=== PATIENT | female | born 1985 | race American Indian/Alaskan Native ===

== ENCOUNTER 2017-10-30 21:49 | Emergency (ER) | payer MEDICAID ==
[2017-10-30 23:04] VITALS: BP 141/94
[2017-10-31] MEDS ORDERED: DELTASONE PO ONE (01:59)
[2017-10-31] MEDS ORDERED: TORADOL ONE (02:00)
[2017-10-31] MEDS ORDERED: TORADOL IM ONE (02:00)
--- NOTE | 2017-10-31 02:03 | Emergency Department Report ---
ED Back Pain/Injury HPI - General Chief Complaint: Back Pain/Injury Stated Complaint: TOE INJURY Time Seen by Provider: 10/31/17 01:37 Source: patient Limitations: No Limitations - History of Present Illness Initial Comments: 32-year-old -[place] female comes in complaining of right sided lower back pain radiates down her right leg that began 2 months ago after working out. However she reports has become more constant. Patient reports she tried hydrocodone which on the last 30 minutes as well as tried heat which she reports did not help either. Patient denies any urine or fecal incontinence. She denies any trauma. No past medical history currently takes no medications on a daily basis and has no known drug allergies. MD Complaint: back pain Similar Symptoms Previously: Yes Radiation: right leg Severity scale (0 -10): 8 Quality: burning, sharp Consistency: intermittent (getting worse) Improves With: none Worsens With: movement, supine, sitting upright, walking Associated Symptoms: numbness. denies: incontinence Treatments Prior to Arrival: prescription analgesics - Related Data Previous Rx's Medication Instructions Recorded Last Taken Type HYDROcodone/APAP 5-325 [[place] 1 each PO Q6HR PRN #15 tablet 02/14/16 Unknown Rx 5/325] Ibuprofen [Motrin 800 MG tab] 800 mg PO Q8HR PRN #30 tablet 02/14/16 Unknown Rx Acetaminophen/Codeine [Tylenol #3] 1 tab PO Q4HR PRN #14 tablet 02/19/16 Unknown Rx Diclofenac Sodium 75 mg PO BID #14 tablet.dr 02/19/16 Unknown Rx Ibuprofen [Motrin 800 MG tab] 800 mg PO Q8HR PRN #30 tablet 10/31/17 Unknown Rx Prednisone [predniSONE 10 mg 10 mg PO .TAPER #1 tab.ds.pk 10/31/17 Unknown Rx (6-Day Pack, 21 Tabs)] Allergies Allergy/AdvReac Type Severity Reaction Status Date / Time No Known Allergies Allergy Verified 02/14/16 19:42 ED Review of Systems ROS: Stated complaint: TOE INJURY Other details as noted in HPI Comment: All other systems reviewed and negative Musculoskeletal: back pain ED Past Medical Hx - Past Medical History Additional medical history: FX left hand - Surgical History Past Surgical History?: No - Social History Smoking Status: Never Smoker Substance Use Type: None - Medications Home Medications: Home Medications Medication Instructions Recorded Confirmed Last Taken Type HYDROcodone/APAP 5-325 [[place] 1 each PO Q6HR PRN #15 tablet 02/14/16 Unknown Rx 5/325] Ibuprofen [Motrin 800 MG tab] 800 mg PO Q8HR PRN #30 tablet 02/14/16 Unknown Rx Acetaminophen/Codeine [Tylenol #3] 1 tab PO Q4HR PRN #14 tablet 02/19/16 Unknown Rx Diclofenac Sodium 75 mg PO BID #14 tablet.dr 02/19/16 Unknown Rx Ibuprofen [Motrin 800 MG tab] 800 mg PO Q8HR PRN #30 tablet 10/31/17 Unknown Rx Prednisone [predniSONE 10 mg 10 mg PO .TAPER #1 tab.ds.pk 10/31/17 Unknown Rx (6-Day Pack, 21 Tabs)] ED Physical Exam - General Limitations: No Limitations General appearance: alert, in no apparent distress - Head Head exam: Present: atraumatic, normocephalic - ENT ENT exam: Present: mucous membranes moist - Respiratory Respiratory exam: Present: normal lung sounds bilaterally. Absent: respiratory distress - Cardiovascular Cardiovascular Exam: Present: regular rate, normal rhythm. Absent: systolic murmur, diastolic murmur, rubs, gallop - Back Exam Back exam: Present: full ROM, other - Expanded Back Exam Expanded Back exam: Sciatic Notch Tenderness: Right, Positive Straight Leg Raise: Right ( positive cross leg exam) - Neurological Exam Neurological exam: Present: alert, oriented X3 - Psychiatric Psychiatric exam: Present: normal affect, normal mood - Skin Skin exam: Present: warm, dry, intact, normal color. Absent: rash ED Course Vital Signs 10/30/17 23:02 Temperature 98.6 F Pulse Rate 87 Respiratory 18 Rate Blood Pressure 141/94 O2 Sat by Pulse 100 Oximetry ED Medical Decision Making - Medical Decision Making Patient's been evaluated by this provider fast track. Exam positive for sciatica. Status the patient I will give her Toradol injection and prednisone. Discussed the patient I will discharge her on ibuprofen and a prednisone pack. Refer patient to her primary care provider. Exercises to help with her sciatica pain. Critical care attestation.: If time is entered above; I have spent that time in minutes in the direct care of this critically ill patient, excluding procedure time. ED Disposition Clinical Impression: Sciatica, right side, Low back pain radiating to lower extremity Disposition: DC-01 TO HOME OR SELFCARE Is pt being admited?: No Does the pt Need Aspirin: No Condition: Stable Additional Instructions: Please take pain medication as prescribed. I highly recommend doing the exercises as at is the best for this issue. If symptoms persist or gets worse please follow up with her primary care provider. Prescriptions: Ibuprofen [Motrin 800 MG tab] 800 mg PO Q8HR PRN #30 tablet PRN Reason: Pain Prednisone [predniSONE 10 mg (6-Day Pack, 21 Tabs)] 10 mg PO .TAPER #1 tab.ds.pk Referrals: PRIMARY CARE, [Primary Care Provider] - 3-5 Days Forms: Work/School Release Form(ED), Accompanied Note
== END 2017-10-31 02:15 | disposition home or self-care (01) ==
LOC: ED 21:49
DX: M54.41 Lumbago with sciatica, right side (principal)
CPT/HCPCS: 96372; 99282; J1885; J7512

== ENCOUNTER 2017-11-07 13:53 | Emergency (ER) | payer MEDICAID ==
[2017-11-07] MEDS ORDERED: TORADOL IM ONE ×2 (23:55→23:57)
[2017-11-07] MEDS ORDERED: ULTRAM PO ONE (23:56)
--- NOTE | 2017-11-07 23:59 | Emergency Department Report ---
ED Back Pain/Injury HPI - General Chief Complaint: Back Pain/Injury Stated Complaint: RIGHT LEG PAIN Time Seen by Provider: 11/07/17 23:55 Source: patient Limitations: No Limitations - History of Present Illness Initial Comments: 32-year-old -Citizen Of [place] female comes back for complaining with back pain with sciatica. Patient was recently seen on 10/31/2017 and was prescribed ibuprofen and steroids report that she has completed her medication dose. Patient reports that she did not follow-up with or go because she is in the process of moving to [place]. Patient ports of the pain is back and should it is unbearable and she does not feel that she is able to move boxes and packed with this pain. Patient denies any urinary or fecal incontinent. SHe denies any dizziness nausea vomiting chest pain shortness of breathing. MD Complaint: back pain -: month(s) (1) - Related Data Previous Rx's Medication Instructions Recorded Last Taken Type HYDROcodone/APAP 5-325 [[place] 1 each PO Q6HR PRN #15 tablet 02/14/16 Unknown Rx 5/325] Ibuprofen [Motrin 800 MG tab] 800 mg PO Q8HR PRN #30 tablet 02/14/16 Unknown Rx Acetaminophen/Codeine [Tylenol #3] 1 tab PO Q4HR PRN #14 tablet 02/19/16 Unknown Rx Diclofenac Sodium 75 mg PO BID #14 tablet.dr 02/19/16 Unknown Rx Prednisone [predniSONE 10 mg 10 mg PO .TAPER #1 tab.ds.pk 10/31/17 Unknown Rx (6-Day Pack, 21 Tabs)] Ibuprofen [Motrin 800 MG tab] 800 mg PO Q8HR PRN #30 tablet 11/07/17 Unknown Rx predniSONE [Deltasone] 20 mg PO QDAY #4 tab 11/07/17 Unknown Rx traMADol [Ultram 50 MG tab] 50 mg PO Q6HR PRN #20 tablet 11/07/17 Unknown Rx Allergies Allergy/AdvReac Type Severity Reaction Status Date / Time No Known Allergies Allergy Verified 02/14/16 19:42 ED Review of Systems ROS: Stated complaint: RIGHT LEG PAIN Other details as noted in HPI Musculoskeletal: back pain ED Past Medical Hx - Past Medical History Previous Medical History?: No Additional medical history: FX left hand, sciatica - Surgical History Past Surgical History?: No - Social History Smoking Status: Never Smoker Substance Use Type: None - Medications Home Medications: Home Medications Medication Instructions Recorded Confirmed Last Taken Type HYDROcodone/APAP 5-325 [[place] 1 each PO Q6HR PRN #15 tablet 02/14/16 Unknown Rx 5/325] Ibuprofen [Motrin 800 MG tab] 800 mg PO Q8HR PRN #30 tablet 02/14/16 Unknown Rx Acetaminophen/Codeine [Tylenol #3] 1 tab PO Q4HR PRN #14 tablet 02/19/16 Unknown Rx Diclofenac Sodium 75 mg PO BID #14 tablet.dr 02/19/16 Unknown Rx Prednisone [predniSONE 10 mg 10 mg PO .TAPER #1 tab.ds.pk 10/31/17 Unknown Rx (6-Day Pack, 21 Tabs)] Ibuprofen [Motrin 800 MG tab] 800 mg PO Q8HR PRN #30 tablet 11/07/17 Unknown Rx predniSONE [Deltasone] 20 mg PO QDAY #4 tab 11/07/17 Unknown Rx traMADol [Ultram 50 MG tab] 50 mg PO Q6HR PRN #20 tablet 11/07/17 Unknown Rx ED Physical Exam - General Limitations: No Limitations General appearance: alert, in no apparent distress - Head Head exam: Present: atraumatic, normocephalic - Eye Eye exam: Present: normal appearance - Back Exam Back exam: Present: paraspinal tenderness. Absent: CVA tenderness (R), CVA tenderness (L) - Expanded Back Exam Expanded Back exam: Sciatic Notch Tenderness: Right, Positive Straight Leg Raise: Right ( positive cross leg) - Neurological Exam Neurological exam: Present: alert, oriented X3 - Psychiatric Psychiatric exam: Present: normal affect, normal mood - Skin Skin exam: Present: warm, dry, intact, normal color. Absent: rash ED Course Vital Signs 11/07/17 14:04 Temperature 98.4 F Pulse Rate 88 Respiratory 18 Rate Blood Pressure 104/74 O2 Sat by Pulse 98 Oximetry ED Medical Decision Making - Medical Decision Making Patient has been evaluated by this provider fast track. Discussed the patient give her another Toradol injection and a few days' worth of prednisone and tramadol for pain. I stressed importance for patient to follow up with her primary care provider, pain management provider, orthopedist. Patient verbalized understanding and states she will follow up when she gets in [place]. Critical care attestation.: If time is entered above; I have spent that time in minutes in the direct care of this critically ill patient, excluding procedure time. ED Disposition Clinical Impression: Sciatica, right side, Low back pain radiating to lower extremity Disposition: TO HOME OR SELFCARE Is pt being admited?: No Does the pt Need Aspirin: No Condition: Undetermined Additional Instructions: Please take pain medication as prescribed. Follow-up with orthopedist pain management primary care. Prescriptions: Ibuprofen [Motrin 800 MG tab] 800 mg PO Q8HR PRN #30 tablet PRN Reason: Pain predniSONE [Deltasone] 20 mg PO QDAY #4 tab traMADol [Ultram 50 MG tab] 50 mg PO Q6HR PRN #20 tablet PRN Reason: Pain Referrals: PRIMARY CARE, [Primary Care Provider] - 3-5 Days PAIN CARE, [facility] [Provider Group] - 3-5 Days [facility] [Provider Group] - 3-5 Days [facility] [Provider Group] - 3-5 Days
[2017-11-08 00:40] VITALS: BP 145/105
== END 2017-11-08 00:10 | disposition home or self-care (01) ==
LOC: ED 13:53
DX: M54.41 Lumbago with sciatica, right side (principal)
CPT/HCPCS: 96372; 99282; J1885